=== PATIENT | male | born 1975 | race Caucasian/White ===

== ENCOUNTER 2020-03-20 18:07 | Emergency (ER) | payer SELFPAY ==
[2020-03-20 19:12] VITALS: BP 151/89; PULSE 77; RESP 16; TEMP 37.1; O2SAT 97; BMI 33.0
--- NOTE | 2020-03-20 20:00 | US_ITS ---
EXAMINATION: US VENOUS ULTRASOUND WITH DOPPLER LOWER EXTREMITY, RIGHT CLINICAL INFORMATION: Pain. Injury. COMPARISON: None TECHNIQUE: Ultrasound of the deep veins is performed from the hip to the calf with compression sonography and color and pulse Doppler assessment. Spectral analysis with color-flow imaging is performed. FINDINGS: There is normal venous compression and respiratory variation and augmented flow. The visualized common femoral vein, superficial femoral vein, profunda femoral vein, popliteal vein, and the trifurcation region shows no evidence of deep venous thrombosis. There is no significant popliteal fossa cyst. In the calf there is fluid which is mildly complex in the intermuscular layers of the posterior medial calf. Given history of trauma this could be due to hematoma and possible muscle tear. Fluid collection extends about 10 cm superior inferior and approximately 1 cm transverse. If the patient's symptoms persist, followup ultrasound in 5 days 7 days might be of value to exclude proximal propagation from a non-visualized calf vein. US/US venous duplex LE RT IMPRESSION: 1. No DVT demonstrated in the right lower extremity. 2. Fluid collection in the intermuscular layers of the posterior medial calf.
--- NOTE | 2020-03-20 20:52 | ED.LOWEXIN ---
HPI - Extremity Injury (Lower) General Chief Complaint: Extremity Injury, Lower Stated Complaint: Rule out DVT Time Seen by Provider: 03/20/20 20:00 Source: patient Mode of arrival: ambulatory Limitations: no limitations History of Present Illness HPI Narrative: 44-year-old male who denies significant past medical history who presents ambulatory via triage with complaint of right calf pain. States 3 days ago was helping his friend move some furniture and felt like he pulled his calf he has had some pain in the calf area since. Though he reports that pain is getting better however his work today told him in order to return he needs to get evaluated so he went to urgent care who sent him to emergency room for rule out DVT of the right lower extremity. He denies any personal history of any such history in the past. Not currently taking any medication. No prolonged drives or flights. No lower extremity swelling. No numbness or tingling. No mass sensation. complaint: leg injury Place: home Severity: mild Relieving factors: NSAID and immobilization Exacerbating factors: movement Associated symptoms: ambulatory Other symptoms: none Treatments prior to arrival: cold therapy Related Data Allergies Allergy/AdvReac Type Severity Reaction Status Date / Time No Known Allergies Allergy Verified 03/20/20 19:16 [No Known Allergies*] Review of Systems Review of Systems: Constitutional: No Weight loss, No Fever, No Chills, No Night Sweats, No Fatigue, No Malaise ENT/Mouth: No Hearing loss, No Ear Pain, No Nasal Congestion, No Sinus Pain, No Hoarseness, No sore throat, No Rhinorrhea Eyes: No Eye Pain, No Swelling, No Redness, No Foreign Body, No Discharge, No Vision Changes Cardiovascular: No Chest Pain, No SOB, No Dyspnea on Exertion, No Orthopnea, No Edema, No Palpitations Respiratory: No Cough, No Sputum, No Wheezing, No Smoke Exposure, No Dyspnea Musculoskeletal: No joint pain, No Myalgias, No Joint Swelling Skin: No Skin Lesions, No rash Neuro: No Weakness, No Numbness, No Paresthesias, No Loss of Consciousness, No Dizziness, No Headache Psych: No Social Issues Heme/Lymph: No Bruising, No Bleeding,No Lymphadenopathy Endocrine: No Polyuria, No Polydipsia, No Temperature Intolerance Yes all other systems are reviewed and are negative [facility] Social History Social History Advance Directives: No Advance Directives Information Provided: Yes Physical Exam Vital Signs: Vital Signs: Last Vital Signs Temp 98.8 F 03/20/20 19:12 Pulse 77 03/20/20 19:12 Resp 16 03/20/20 19:12 BP 151/89 H 03/20/20 19:12 Pulse Ox 97 03/20/20 19:12 Body Mass Index 33.0 Reviewed Const: General: cooperative and healthy appearing; No acute distress or intoxicated appearing Nutritional Appearance: average body habitus Orientation/consciousness: patient oriented x3 Chest: Chest palpation & inspection: normal inspection of the chest Resp: Effort & Inspection: normal respiratory effort Cardio: Jugular venous distension: no JVD : General: Yes no CVA tenderness Back/Spine/Pelvis: Back: no CVA tenderness Skin: General skin exam: no rashes or lesions noted Neuro: General: patient oriented x3 Extrem: General: Yes normal to inspection Left lower extremity: normal to inspection and full ROM Upper/lower leg/hip images: 1. The area of the pain that slightly there with palpation. no erythema, swelling. Negative Homans. Squeeze test within normal limits. Course Course Course Narrative: AP consistent with strain type injury to the calf muscle no overt evidence of rupture or infectious pathology. Patient seen at urgent care and sent over for rule out DVT though mild suspicions are low and his risk factors are relatively low will go ahead and do this lower extremity ultrasound rule out DVT. Reevaluation(s) Reevaluation #1: 2100 Sign-out to [facility] night team pending ultrasound of the right lower extremity. Anticipated disposition is to be discharged home with some NSAIDs. MDM - Extremity Injury (Lower) Medical Records Attestation: I reviewed the patient's medical records. Lab Data Attestation: I reviewed the patient's lab results.
[2020-03-20 21:46] VITALS: BP 147/89; PULSE 76; RESP 16; TEMP 36.5; O2SAT 95
== END 2020-03-20 22:00 | disposition home or self-care (01) ==
PROVIDERS: Emergency Provider Internal Medicine
DX: S86.911A Strain of unspecified muscle(s) and tendon(s) at lower leg level, right leg, initial encounter (principal); X50.0XXA Overexertion from strenuous movement or load, initial encounter; M79.661 Pain in right lower leg; Y93.E6 Activity, residential relocation; Y92.019 Unspecified place in single-family (private) house as the place of occurrence of the external cause; Y99.9 Unspecified external cause status
CPT/HCPCS: 93971; 99284

== ENCOUNTER 2020-08-15 07:23 | Emergency (ER) | payer OTHER, SELFPAY ==
--- NOTE | ~2020-08-15 | XR_ITS ---
EXAMINATION: XR CHEST CLINICAL INFORMATION: Chest pain. COMPARISON: None TECHNIQUE: Frontal view of the chest was obtained. FINDINGS: The cardiomediastinal silhouette is within normal limits for AP technique. The lungs are mildly hypoexpanded. No pulmonary edema. Small area of focal retrocardiac consolidation. No effusion or pneumothorax. XR/XR chest 1V IMPRESSION: Small focal area of consolidation in the left lower lobe, question pneumonia. Recommend a follow-up two-view chest x-ray in 4-6 weeks to ensure resolution.
--- NOTE | 2020-08-15 07:30 | ECG_ITS ---
Test Reason : CHEST PAIN Blood Pressure : / mmHG Vent. Rate : 060 BPM Atrial Rate : 060 BPM P-R Int : 150 ms QRS Dur : 118 ms QT Int : 464 ms P-R-T Axes : -26 -39 092 degrees QTc Int : 464 ms Normal sinus rhythm Left axis deviation Left ventricular hypertrophy with QRS widening T wave abnormality, consider lateral ischemia Prolonged QT Abnormal ECG No previous ECGs available Referred By: Zarina Lagos Electronically Signed By:KAREEM BAILON MD
[2020-08-15 07:31] VITALS: BP 173/99; PULSE 59; RESP 20; TEMP 36.6; O2SAT 99; BMI 35.6
--- NOTE | 2020-08-15 07:37 | ED.CHESTPAIN ---
HPI - Chest Pain General Chief Complaint: Chest Pain Stated Complaint: CHEST PAIN Time Seen by Provider: 08/15/20 07:30 Source: patient Mode of arrival: ambulatory Limitations: no limitations History of Present Illness HPI narrative: chest pain no associated symptoms MD complaint: chest pain Onset (ago): day(s) (yesterday while doing no activity at work) Timing of current episode: constant Prior episodes: No Onset: during rest and during exertion Pain location: substernal Pain radiation: none Severity: mild Quality: tightness Relieving factors: nothing Exacerbating factors: other (leaning forward) Treatment prior to arrival: none Related Data Previous Rx's Medication Instructions Recorded naproxen [EC-Naproxen] 500 mg PO Q12H PRN #10 tab 03/20/20 doxycycline hyclate 100 mg PO BID 7 Days #14 cap 08/15/20 hydrochlorothiazide 25 mg PO DAILY #30 tab 08/15/20 Allergies Allergy/AdvReac Type Severity Reaction Status Date / Time No Known Allergies Allergy Verified 03/20/20 19:16 [No Known Allergies*] Review of Systems Review of Systems: Constitutional : No Weight loss, No Fever, No Chills ENT/Mouth : No sore throat, No Rhinorrhea Eyes: No Eye Pain, No Swelling Cardiovascular : pos Chest Pain, no SOB, no Dyspnea on Exertion, No Orthopnea, No Edema, No Palpitations Respiratory : No Cough, No Sputum Gastrointestinal : no Nausea, No Vomiting, No Diarrhea, No abdominal Pain, No Hematochezia, No Melena Genitourinary : No Dysuria, No Urinary Frequency Musculoskeletal : No joint pain, No Myalgias, No Joint Swelling Skin : No Skin Lesions, No rash Neuro : No Weakness, No Numbness, No Dizziness, No Headache Psych : No Anxiety/Panic, No Depression Heme/Lymph: No Bruising, No Lymphadenopathy Endocrine : No Polyuria, No Polydipsia All other systems reviewed and are negative COUNTS INCLUDE 234 BEDS AT THE [facility] Past Medical History Attestation statement: The following information was validated with the patient. Medical History No active medical problems Surgical History Hx of hernia repair Social History Social History (Updated 08/15/20 @ 07:39 by Zarina Yolis, DO) Alcohol intake: never Smoking Status: Current some day smoker Use of substances other than those prescribed or required for medical reasons: Yes Substance Use Type: Marijuana Substance Use Frequency: Daily Advance Directives: No Advance Directives Information Provided: No Physical Exam Vital Signs: Vital Signs: Last Vital Signs Temp 97.9 F 08/15/20 07:31 Pulse 55 08/15/20 08:50 Resp 20 08/15/20 08:50 BP 167/98 H 08/15/20 08:50 Pulse Ox 95 08/15/20 08:50 Body Mass Index 35.6 Appearance: Alert. Oriented X3. No acute distress. Eyes: Pupils equal, round and reactive to light. ENT: Pharynx normal. Neck: Normal inspection. Neck supple. CVS: Normal heart rate and rhythm. Pulses normal. Chest: mild sternal ttp Respiratory: No respiratory distress. Breath sounds normal. Abdomen: Soft and nontender. Skin: Skin warm and dry. Normal skin color. Normal skin turgor. Extremities: No lower extremity edema. No calf ttp Neuro: Oriented X 3. No motor deficit. No sensory deficit. Course Course Course Narrative: flat troponin, atypical in nature, EKG shows LVH with strain will start on HCTZ and refer to PCP MDM - Chest Pain MDM Narrative Medical decision making narrative: 44 yo male here with chest pain that is atypical central in nature and tight no associated symptoms seems unusual for ACS, PERC negative, not toxic, symmetric distal pulses doubt dissection, will need labs, troponin x 1 as pain constant > 6 hours, CXR, likely chronic HTN does not go to the doctors, dispo per results and findings. Lab Data Result diagrams: 08/15/20 07:42 08/15/20 07:42 Labs: Lab Results 08/15/20 08/15/20 08/15/20 Range/Units 07:42 07:42 07:42 WBC 10.2 (4.8-10.8) X10*3/uL RBC 4.66 (4.60-5.80) X10*6/uL Hgb 13.8 L (14.0-18.0) g/dl Hct 41.9 L (42-52) % MCV 89.9 (80-98) fL MCH 29.6 (27.0-33.0) pg MCHC 32.9 (31.0-36.0) g/dl RDW 14.8 (11.0-16.0) % Plt Count 259 (160-400) X10*3/uL MPV 11.0 (9.4-12.4) fL Immature Gran % (Auto) 0.3 (0.0-0.4) % Neut % (Auto) 60.1 (45-73) % Lymph % (Auto) 27.9 (20-40) % Braxton % (Auto) 10.0 (2-11) % Eos % (Auto) 1.1 (0-4) % Baso % (Auto) 0.6 (0-2) % Lymph # (Auto) 2.8 (1.2-4.9) X10*3/uL Braxton # (Auto) 1.0 (0.1-1.2) X10*3/uL Eos # (Auto) 0.1 (0.0-0.4) X10*3/uL Baso # (Auto) 0.1 (0.0-0.2) X10*3/uL Abs Immat Gran (auto) 0.03 (0.00-0.03) X10*3/uL Absolute Neuts (auto) 6.1 (2.0-8.3) X10*3/uL Absolute Nucleated RBC 0.000 (0.0-0.012) X10*3/uL Nucleated RBC % (auto) 0.0 (0.0-0.2) /100WBC Hold Blue Top SEE NOTE Sodium 138 (135-145) mmol/L Potassium 4.1 (3.3-5.1) mmol/L Chloride 105 (96-108) mmol/L Carbon Dioxide 24 (22-29) mmol/L Anion Gap 13 (12-20) BUN 9 (9-16) mg/dL Creatinine 0.85 (0.5-1.4) mg/dL Estim Creat Clear Calc 153.6 Estimated GFR > 60 Random Glucose 99 (60-115) mg/dL Calcium 9.0 (8.4-10.2) mg/dL Total Bilirubin 1.1 H (0.0-1.0) mg/dL Direct Bilirubin 0.3 (0.0-0.5) mg/dL AST 17 (5-37) U/L ALT 17 (0-40) U/L Alkaline Phosphatase 92 (39-117) U/L Troponin I High Sens (<3.5-35.0) ng/L Total Protein 6.9 (6.5-8.0) g/dL Albumin 4.2 (3.5-5.0) g/dL COVID-19 (VICKEY) (Negative) COVID-19 Clin Com 08/15/20 08/15/20 08/15/20 Range/Units 07:42 08:07 11:04 WBC (4.8-10.8) X10*3/uL RBC (4.60-5.80) X10*6/uL Hgb (14.0-18.0) g/dl Hct (42-52) % MCV (80-98) fL MCH (27.0-33.0) pg MCHC (31.0-36.0) g/dl RDW (11.0-16.0) % Plt Count (160-400) X10*3/uL MPV (9.4-12.4) fL Immature Gran % (Auto) (0.0-0.4) % Neut % (Auto) (45-73) % Lymph % (Auto) (20-40) % Braxton % (Auto) (2-11) % Eos % (Auto) (0-4) % Baso % (Auto) (0-2) % Lymph # (Auto) (1.2-4.9) X10*3/uL Braxton # (Auto) (0.1-1.2) X10*3/uL Eos # (Auto) (0.0-0.4) X10*3/uL Baso # (Auto) (0.0-0.2) X10*3/uL Abs Immat Gran (auto) (0.00-0.03) X10*3/uL Absolute Neuts (auto) (2.0-8.3) X10*3/uL Absolute Nucleated RBC (0.0-0.012) X10*3/uL Nucleated RBC % (auto) (0.0-0.2) /100WBC Hold Blue Top Sodium (135-145) mmol/L Potassium (3.3-5.1) mmol/L Chloride (96-108) mmol/L Carbon Dioxide (22-29) mmol/L Anion Gap (12-20) BUN (9-16) mg/dL Creatinine (0.5-1.4) mg/dL Estim Creat Clear Calc Estimated GFR Random Glucose (60-115) mg/dL Calcium (8.4-10.2) mg/dL Total Bilirubin (0.0-1.0) mg/dL Direct Bilirubin (0.0-0.5) mg/dL AST (5-37) U/L ALT (0-40) U/L Alkaline Phosphatase (39-117) U/L Troponin I High Sens 8.1 6.1 (<3.5-35.0) ng/L Total Protein (6.5-8.0) g/dL Albumin (3.5-5.0) g/dL COVID-19 (VICKEY) Negative (Negative) COVID-19 Clin Com See Note ECG Data ECG #1: Attestation: I personally reviewed and interpreted this ECG as follows: ECG interpretation date: 08/15/20 ECG interpretation time: 07:41 Interpretation: Rate: 60 Rhythm: NSR with LVH [place]: left, LVH Normal P waves. Normal LILLY. Normal QRS complex. ST T wave : LVH with strain pattern inverted I and aVL, V6, no MIQUEL qTC: normal prior studies: no acute ischemia The study has been interpreted contemporaneously by me. . Discharge Plan Discharge Clinical Impression: Atypical chest pain HTN (hypertension) Qualifiers: Hypertension type: unspecified Qualified Code(s): I10 - Essential (primary) hypertension Pneumonia Qualifiers: Pneumonia type: due to unspecified organism Laterality: left Lung location: lower lobe of lung Qualified Code(s): J18.9 - Pneumonia, unspecified organism Patient Disposition: Home, Self-Care Instructions: Chest Pain (ED), Chronic Hypertension (ED), Pneumonia (ED) Additional Instructions: return to ED for any worsening symptoms or concerns COVID TEST WAS NEGATIVE Prescriptions: New doxycycline hyclate 100 mg capsule 100 mg PO BID 7 Days Qty: 14 RF: 0 hydrochlorothiazide 25 mg tablet 25 mg PO DAILY Qty: 30 RF: 2 No Action naproxen [EC-Naproxen] 500 mg tablet,delayed release (DR/EC) 500 mg PO Q12H PRN (Reason: pain) Qty: 10 RF: 0 Referrals: Physician,None [Primary Care Provider] - 2 days (PCP as soon as possible) Stand Alone Forms: Work/School Release
[2020-08-15 07:48] LABS: MANUAL DIFF FLAG NO
[2020-08-15 07:53] LABS: Basophils Absolute Auto 0.1 X10*3/uL (0.0-0.2); Basophils Percent Auto 0.6 % (0-2); Eosinophils Absolute Auto 0.1 X10*3/uL (0.0-0.4); Eosinophils Percent Auto 1.1 % (0-4); Hematocrit 41.9 % (42-52); Hemoglobin 13.8 g/dl (14.0-18.0); Imm Gran Abs Auto 0.03 X10*3/uL (0.00-0.03); Imm Gran Pct Auto 0.3 % (0.0-0.4); Lymphocytes Absolute Auto 2.8 X10*3/uL (1.2-4.9); Lymphocytes Percent Auto 27.9 % (20-40); Mean Corpuscular HGB Conc 32.9 g/dl (31.0-36.0); Mean Corpuscular Hemoglobin 29.6 pg (27.0-33.0); Mean Corpuscular Volume 89.9 fL (80-98); Neutrophils Absolute Auto 6.1 X10*3/uL (2.0-8.3); Neutrophils Percent Auto 60.1 % (45-73); Platelet Count 259 X10*3/uL (160-400); Red Blood Count 4.66 X10*6/uL (4.60-5.80); Red Cell Distribution Width 14.8 % (11.0-16.0); White Blood Count 10.2 X10*3/uL (4.8-10.8)
[2020-08-15 08:08] VITALS: BP 173/99; PULSE 68; RESP 15; O2SAT 99
[2020-08-15 08:19] LABS: Alanine Aminotransferase 17 U/L (0-40); Albumin Level 4.2 g/dL (3.5-5.0); Alkaline Phosphatase 92 U/L (39-117); Anion Gap 13 (12-20); Aspartate Amino Transferase 17 U/L (5-37); Bilirubin Direct 0.3 mg/dL (0.0-0.5); Bilirubin Total 1.1 mg/dL (0.0-1.0); Blood Urea Nitrogen 9 mg/dL (9-16); Carbon Dioxide 24 mmol/L (22-29); Chloride 105 mmol/L (96-108); Creatinine Clr Calc Pharmacy 153.6; Estimated Glomerular Filt Rate > 60; Glucose Random 99 mg/dL (60-115); Potassium 4.1 mmol/L (3.3-5.1); Sodium 138 mmol/L (135-145); Total Protein 6.9 g/dL (6.5-8.0)
[2020-08-15 08:27] LABS: Troponin-I High Sensitivity 8.1 ng/L (<3.5-35.0)
[2020-08-15 08:34] LABS: COVID-19 Test Negative (Negative)
[2020-08-15 08:50] VITALS: BP 167/98; PULSE 55; RESP 20; O2SAT 95
--- NOTE | 2020-08-15 08:51 | PC.NURSE ---
ot resting comfortably in the stretcher, denies chest pain at this time, sinus ary at this time 55-60, vs stable. pt aware of plan to redraw trop at 1030
[2020-08-15 11:59] LABS: Troponin-I High Sensitivity 6.1 ng/L (<3.5-35.0)
[2020-08-15 12:29] VITALS: BP 160/100; PULSE 54; RESP 16; O2SAT 95
== END 2020-08-15 12:30 | disposition home or self-care (01) ==
PROVIDERS: Emergency Provider Emergency Medicine
DX: R07.89 Other chest pain (principal); I10 Essential (primary) hypertension; J18.9 Pneumonia, unspecified organism; Z20.822 Contact with and (suspected) exposure to COVID-19; F17.200 Nicotine dependence, unspecified, uncomplicated; F12.90 Cannabis use, unspecified, uncomplicated
CPT/HCPCS: 36415; 71045; 80048; 80076; 84484; 85025; 87635; 93005; 99283; 99285

== ENCOUNTER → 2021-02-03 13:45 | Outpatient (REF) | payer OTHER, SELFPAY ==
--- NOTE | 2021-02-03 13:48 | CA_ITS ---
Transthoracic Echocardiogram Patient (Last, First, Middle): Varinder Samuel, Gender: Male Date of : 1975 Age: 45 Procedure Date: 02/03/2021 Procedure Type: Transthoracic Echocardiogram Location: OP Height: 182.88 cm Weight: 123.83 kg BSA: 2.43 m2 Heart Rate: bpm BP: 140 / 80 mmHg Cover Operator: BHARGAV/CP Referring MD: Susy Cleary Symptoms: I10 HTN Study Quality: Fair ECG Rhythm: Sinus Conclusions: - The left ventricular systolic function is normal. The calculated ejection fraction is 58% by biplane method. - There is moderately increased left ventricular wall thickness. - The basal inferior segment is hypokinetic. - There is moderate dilatation of the ascending aorta measuring 4.40 cm. Findings Left Ventricle Normal left ventricular cavity size. There is moderately increased left ventricular wall thickness. The left ventricular systolic function is normal. The calculated ejection fraction is 58% by biplane method. E/E prime ratio is between 8 and 15 consistent with indeterminate filling pressures. Evidence suggests grade I (mild) diastolic dysfunction. Wall Motion Rest Echo Findings The basal inferior segment is hypokinetic. Right Ventricle Mildly increased right ventricular cavity size. There is normal right ventricular systolic function. Aortic Valve There is a normal trileaflet aortic valve. There is no aortic valve stenosis. There is trace (trivial) aortic valve regurgitation. Mitral Valve The mitral valve appears normal. There is no mitral valve regurgitation. There is no mitral valve stenosis. Pulmonic Valve The pulmonic valve was not well visualized. There is trace pulmonic valve regurgitation. Tricuspid Valve Normal tricuspid valve structure. There is trace tricuspid valve regurgitation. The pulmonary artery systolic pressure is normal. Great Vessels There is moderate dilatation of the ascending aorta measuring 4.40 cm. Venous The inferior vena cava is normal in size and collapses greater than 50% with inspiration. Pericardium/Pleural There is no evidence of pericardial effusion. Prior Study Comparison No prior study available for comparison. Measurements 2D Linear Measurements IVSd: 1.35 0.6-0.9/0.6-1.0 cm LVIDd: 5.08 3.9-5.3/4.2-5.9 cm LVIDd Index: 2.09 2.4-3.2/2.2-3.1 cm/m2 LVIDs: 3.07 2.0-3.6 cm LVPWd: 1.26 0.7-1.1 cm Ao Root: 4.10 2.1-3.5 cm LA Diam: 4.00 2.7-3.8/3.0-4.0 cm LAIDs Index: 1.65 1.5-2.3 cm/m2 LV Mass: 336.61 67-162/88-224 g LV Mass Index: 138.52 43-95/49-115 g/m2 LVOT Diam: 2.20 3.0+(-)1.3 cm 2D Systolic Function EF 4C: 57.00 >55% EF 2C: 59.50 >55% EF BiP: 58.30 >55% Mitral Valve MV Pk E: 0.63 MV PK A: 0.62 MV Decel Time: 282.00 E/A: 1.00 E'Lateral: 8.38 E'Medial: 5.11 E/E' Med: 12.30 E/E' Lat: 7.50 PHT: 83.00 MVA PHT: 2.65 Decel Harlan: 2.22 Aortic Valve AoV Pk Scott: 1.41 AoV Mn Scott: 0.92 AoV VTI: 0.24 AoV Pk Grad: 8.00 Aov Mn Grad: 4.00 JANICE Cont.VTI: 3.39 LVOT LVOT Pk Scott: 1.07 LVOT Mn Scott: 0.74 LVOT VTI: 0.22 LVOT Pk Grad: 5.00 LVOT Mn Grad: 3.00 LVOT Diam: 2.20 LVOT Area: 3.80 Diastolic Function MV Pk E: 0.63 MV Pk A: 0.62 E/A: 1.00 E'Medial: 5.11 E/E' Med: 12.30 E' Laterial: 8.38 E/E' Lat: 7.50 Right Ventricle TAPSE (mm): 24.80 TVS' Scott: 14.90 Tricuspid Valve TR Pk Scott: 1.18 TR Pk Grad: 6.00 RA Press: 3.00 RVSP: 9.00 Great Vessels Aorta Ao Root-2D: 4.10 2.0-3.7 cm Ao Asc: 4.40 2.1-3.4 cm Ao Arch: 3.60 Updated in Other Vendor System with Status of Final Jon Nichole MD electronically signed on 02/04/2021 11:53:17 AM with status of Final
== END ==
LOC: HO.CARD 13:45
PROVIDERS: Visit Provider Nurse Practitioner Family
DX: I10 Essential (primary) hypertension (principal); R06.02 Shortness of breath
CPT/HCPCS: 93306

== ENCOUNTER → 2021-02-16 15:12 | Outpatient (BNVA) | payer OTHER, SELFPAY | PROVIDERS: PCP Nurse Practitioner Family; Referring Provider Nurse Practitioner Family; Visit Provider Internal Medicine Cardiovascular Disease | DX: R07.9 Chest pain, unspecified (principal); R06.02 Shortness of breath; I10 Essential (primary) hypertension | CPT/HCPCS: 93005 ==

== ENCOUNTER → 2021-04-08 10:55 | Outpatient (REF) | payer OTHER, SELFPAY ==
--- NOTE | 2021-04-08 11:01 | CA_ITS ---
Acquisition Time: 2021-04-08 11:24:08 Total Exercise Time: 00:05:30 Test Indications: CP, SOB Medications: SEE CHART Protocol: LES Max HR: 153 BPM 86% of Pred: 176 BPM Max BP: 158/088 mmHG Max Work Load: 7.0 METS Exercise stress test with exercise 5 min 30 sec of Les protocol, with moderate shortness of breath, no chest discomfort, with isolated PVC, with normotensive response to exercise, without EKG changes meeting criteira for ischemia, during exercsie and in recvovery there is T wave inversion aVL which resolved by 5 min recovery. Echo images obtained by tech at rest and immediately post peak exercise. Definity contrast used. Test reviewed with Dr Nichole Referred By: Gregg Arriola Overread By: VÍCTOR JAY
== END ==
LOC: HO.CARD 10:55
PROVIDERS: PCP Nurse Practitioner Family; Visit Provider Internal Medicine Cardiovascular Disease
DX: R07.9 Chest pain, unspecified (principal); R06.02 Shortness of breath
CPT/HCPCS: 93350; Q9957

== ENCOUNTER → 2021-04-28 14:46 | Outpatient (BNVA) | payer SELFPAY | PROVIDERS: PCP Nurse Practitioner Family; Visit Provider Internal Medicine | DX: Z02.1 Encounter for pre-employment examination (principal) | CPT/HCPCS: 36415; 86706 ==

== ENCOUNTER 2021-11-24 14:39 | Emergency (ER) | payer OTHER, SELFPAY ==
--- NOTE | ~2021-11-24 | CT_ITS ---
EXAMINATION: CT HEAD WITHOUT CONTRAST CLINICAL INFORMATION: Hypertension and dizziness. COMPARISON: None TECHNIQUE: Contiguous axial imaging was performed from the skull base to vertex without intravenous administration of contrast. This CT examination was performed using dose optimization techniques as appropriate, variously including the following: *Automated exposure control *Adjustment of mA and/or kV according to patient size (this includes techniques or standardized protocols for targeted exams where dose is matched to indication/reason for exam; i.e. extremities or head) *Use of iterative reconstruction technique DLP: 780 mGy-cm FINDINGS: There is no evidence of acute intracranial hemorrhage or territorial infarction. No abnormal mass effect or midline shift is seen. Flores to white matter differentiation is well preserved. No extra-axial fluid collections are identified. The ventricles are normal in size. There is no abnormal attenuation within the brain parenchyma. The osseous structures and soft tissues are normal. Mild polypoid mucosal disease of the right maxillary sinus with minimal mucosal disease of the left maxillary sinus. Other visualized paranasal sinuses and mastoid air cells are well aerated. CT/CT head/brain wo con IMPRESSION: -No acute intracranial pathology. -Mild sinus disease.
[2021-11-24 16:05] VITALS: BP 168/96; PULSE 63; RESP 18; TEMP 36.9; O2SAT 97; BMI 37.0
[2021-11-24 16:25] LABS: MANUAL DIFF FLAG NO
[2021-11-24 16:27] LABS: Basophils Absolute Auto 0.1 X10*3/uL (0.0-0.2); Basophils Percent Auto 0.5 % (0-2); Eosinophils Absolute Auto 0.3 X10*3/uL (0.0-0.4); Eosinophils Percent Auto 2.3 % (0-4); Hemoglobin 13.4 g/dl (14.0-18.0); Imm Gran Abs Auto 0.04 X10*3/uL (0.00-0.03); Imm Gran Pct Auto 0.4 % (0.0-0.4); Lymphocytes Absolute Auto 3.3 X10*3/uL (1.2-4.9); Lymphocytes Percent Auto 29.7 % (20-40); Mean Corpuscular HGB Conc 32.7 g/dl (31.0-36.0); Mean Corpuscular Volume 88.7 fL (80.0-98.0); Mean Platelet Volume 10.9 fL (9.4-12.4); Monocytes Absolute Auto 1.3 X10*3/uL (0.1-1.2); Monocytes Percent Auto 11.3 % (2-11); Neutrophils Absolute Auto 6.2 x10*3/uL (2.0-8.3); Neutrophils Percent Auto 55.8 % (45-73); Platelet Count 298 X10*3/uL (160-400); Red Blood Count 4.62 X10*6/uL (4.60-5.80); Red Cell Distribution Width 14.6 % (11.0-16.0); White Blood Count 11.1 X10*3/uL (4.8-10.8)
[2021-11-24 16:42] LABS: Anion Gap 12 (12-20); Blood Urea Nitrogen 12 mg/dL (9-16); Carbon Dioxide 25 mmol/L (22-29); Chloride 105 mmol/L (96-108); Creatinine Clr Calc Pharmacy 146.6; Estimated Glomerular Filt Rate > 60; Glucose Random 95 mg/dL (60-115); Potassium 4.4 mmol/L (3.3-5.1); Sodium 138 mmol/L (135-145)
[2021-11-24 17:25] VITALS: BP 159/103; PULSE 56; RESP 16; TEMP 36.8; O2SAT 99
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
--- NOTE | 2021-11-24 17:31 | PC.NURSE ---
pt a&oxx3, vss - hypertensive, has been off HTN medication for a while, pt reports feeling dizzy today at work and had nurse check BP. pt denies any pain at this time. pending ED provider.
[2021-11-24] MEDS: 0.9 % Sodium Chloride 1,000 ML 999 ML IV (17:40)
[2021-11-24] MEDS: amLODIPine Besylate 5 MG TABLET PO (17:45)
--- NOTE | 2021-11-24 17:46 | PC.NURSE ---
20GIV placed right hand, NaCl running, medicated per provider order, pt to CT.
[2021-11-24 18:52] VITALS: BP 162/105; PULSE 60; RESP 22; O2SAT 99
--- NOTE | 2021-11-24 19:05 | ECG_ITS ---
Test Reason : cp Blood Pressure : / mmHG Vent. Rate : 055 BPM Atrial Rate : 055 BPM P-R Int : 186 ms QRS Dur : 110 ms QT Int : 462 ms P-R-T Axes : -02 -16 003 degrees QTc Int : 441 ms Sinus bradycardia Moderate voltage criteria for LVH, may be normal variant ( R in aVL , Tenino product ) Nonspecific T wave abnormality Abnormal ECG When compared with ECG of 15-AUG-2020 07:38, No significant changes seen Referred By: Sudha Stiles Electronically Signed By:KIRTI CASTILLO
[2021-11-24 20:01] LABS: Troponin-I High Sensitivity 8.7 ng/L (<3.5-35.0)
== END 2021-11-24 20:55 | disposition home or self-care (01) ==
PROVIDERS: Emergency Provider Emergency Medicine; PCP Nurse Practitioner Family
DX: I10 Essential (primary) hypertension (principal); T67.5XXA Heat exhaustion, unspecified, initial encounter; X58.XXXA Exposure to other specified factors, initial encounter; R42 Dizziness and giddiness; Y93.9 Activity, unspecified; Y92.89 Other specified places as the place of occurrence of the external cause; Y99.8 Other external cause status; Z91.14 Patient's other noncompliance with medication regimen
CPT/HCPCS: 36415; 70450; 80048; 84484; 85025; 93005; 96360; 96361; 99284

== ENCOUNTER 2023-11-30 07:20 | Emergency (ER) | payer BC, SELFPAY ==
--- NOTE | ~2023-11-30 | XR_ITS ---
EXAMINATION: XR CHEST CLINICAL INFORMATION: Productive cough. Chest pain. COMPARISON: 08/15/2020 TECHNIQUE: 2 views of the chest were obtained. FINDINGS: The lungs are well expanded. No focal consolidation. No pleural effusion. Cardiac silhouette is unchanged. XR/XR chest 2V IMPRESSION: No acute abnormality.
[2023-11-30 07:32] VITALS: BP 183/101; PULSE 64; RESP 17; TEMP 36.9; O2SAT 95; BMI 38.8
--- NOTE | 2023-11-30 07:37 | ECG_ITS ---
Test Reason : CHEST TIGHTNESS Blood Pressure : / mmHG Vent. Rate : 059 BPM Atrial Rate : 059 BPM P-R Int : 170 ms QRS Dur : 108 ms QT Int : 448 ms P-R-T Axes : 007 -37 121 degrees QTc Int : 443 ms Sinus bradycardia with sinus arrhythmia Left axis deviation Left ventricular hypertrophy with repolarization abnormality ( R in aVL , Rene product , Romhilt-Wilkerson ) Abnormal ECG When compared with ECG of 24-NOV-2021 19:14, T wave inversion less evident in Lateral leads Referred By: Generic ED Physician Electronically Signed By:KIRTI CASTILLO
[2023-11-30 07:52] LABS: MANUAL DIFF FLAG NO
[2023-11-30 07:54] LABS: Basophils Absolute Auto 0.1 X10*3/uL (0.0-0.2); Basophils Percent Auto 0.5 % (0-2); Eosinophils Absolute Auto 0.3 X10*3/uL (0.0-0.4); Eosinophils Percent Auto 2.6 % (0-4); Hematocrit 40.9 % (42.0-52.0); Hemoglobin 13.9 g/dl (14.0-18.0); Imm Gran Abs Auto 0.03 X10*3/uL (0.00-0.03); Imm Gran Pct Auto 0.3 % (0.0-0.4); Lymphocytes Absolute Auto 1.8 X10*3/uL (1.2-4.9); Lymphocytes Percent Auto 17.5 % (20-40); Mean Corpuscular Hemoglobin 29.4 pg (27.0-33.0); Mean Corpuscular Volume 86.7 fL (80.0-98.0); Mean Platelet Volume 10.4 fL (9.4-12.4); Monocytes Absolute Auto 1.2 X10*3/uL (0.1-1.2); Monocytes Percent Auto 11.6 % (2-11); Neutrophils Absolute Auto 6.9 x10*3/uL (2.0-8.3); Neutrophils Percent Auto 67.5 % (45-73); Platelet Count 265 X10*3/uL (160-400); Red Blood Count 4.72 X10*6/uL (4.60-5.80); Red Cell Distribution Width 14.6 % (11.0-16.0); White Blood Count 10.2 X10*3/uL (4.8-10.8)
[2023-11-30 08:07] LABS: Anion Gap 13 (12-20); Blood Urea Nitrogen 8 mg/dL (9-16); Calcium 9.1 mg/dL (8.4-10.2); Carbon Dioxide 26 mmol/L (22-29); Chloride 104 mmol/L (96-108); Creatinine Clr Calc Pharmacy 140.7; Estimated Glomerular Filt Rate > 60; Glucose Random 107 mg/dL (60-115); Potassium 3.6 mmol/L (3.3-5.1); Sodium 139 mmol/L (135-145)
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
[2023-11-30 08:29] VITALS: BP 163/101; PULSE 64; RESP 18; TEMP 36.9; O2SAT 97
[2023-11-30 08:31] LABS: Influenza A PCR NEGATIVE (Negative); Influenza B PCR NEGATIVE (Negative); Resp Syncy Virus RNA Qual PCR NEGATIVE (Negative); SARS COV2 PCR INHOUSE NEGATIVE (Negative)
[2023-11-30 08:34] LABS: Troponin-I High Sensitivity 11.5 ng/L (<3.5-35.0)
[2023-11-30] MEDS: Albuterol Sulfate 90 MCG 8 GM INHALER 2 PUFF INHALE (08:35)
[2023-11-30 08:36] VITALS: PULSE 64; RESP 15; O2SAT 97
[2023-11-30 08:39] VITALS: BP 163/101
[2023-11-30] MEDS: amLODIPine Besylate 5 MG TABLET PO (08:39)
[2023-11-30] MEDS: hydroCHLOROthiazide 25 MG TABLET PO (08:39)
[2023-11-30 09:06] VITALS: BP 168/105; PULSE 66; RESP 16; TEMP 36.4; O2SAT 96
== END 2023-11-30 09:08 | disposition home or self-care (01) ==
PROVIDERS: Emergency Provider Emergency Medicine
DX: J40 Bronchitis, not specified as acute or chronic (principal); I10 Essential (primary) hypertension; R09.89 Other specified symptoms and signs involving the circulatory and respiratory systems; R05.9 Cough, unspecified; Z03.818 Encounter for observation for suspected exposure to other biological agents ruled out; Z79.899 Other long term (current) drug therapy
CPT/HCPCS: 0241U; 71046; 80048; 84484; 85025; 93005; 94640; 94664; 99284; 99285

== ENCOUNTER → 2023-11-30 07:37 | Outpatient (BNV) | payer BC, SELFPAY | PROVIDERS: Emergency Provider Emergency Medicine; Visit Provider Internal Medicine | DX: R07.89 Other chest pain (principal); R00.1 Bradycardia, unspecified; R94.31 Abnormal electrocardiogram [ECG] [EKG] | CPT/HCPCS: 93010 ==

== ENCOUNTER 2024-01-30 14:49 | Inpatient (IN) | payer BC, SELFPAY ==
[2024-01-30] VITALS (7 sets, daily range): BP systolic 159–185; BP diastolic 87–109; PULSE 59–74; RESP 18–22; TEMP 36.6–37; O2SAT 96–98; BMI 39.5
--- NOTE | ~2024-01-30 | MR_ITS ---
EXAMINATION: MR BRAIN WITHOUT CONTRAST CLINICAL INFORMATION: ? CVA, slurred speech COMPARISON: None available. TECHNIQUE: MRI of the brain was obtained using routine sequences without contrast. FINDINGS: Motion artifact is present. Acute infarct involving the left basal ganglia. No hemorrhagic transformation. No midline shift or hydrocephalus. No acute extra-axial fluid collections. The osseous structures are unremarkable. The pituitary gland, pineal gland and remaining midline structures are unremarkable. No orbital pathology. Mild to moderate mucosal thickening of the paranasal sinuses. The mastoid air cells are clear. MR/MR head/brain wo con IMPRESSION: Acute left basal ganglia infarct. No hemorrhagic transformation. Electronically signed by: Shahnaz Ken MD 01/31/2024 05:00 PM EDT
--- NOTE | ~2024-01-30 | CT_ITS ---
EXAMINATION: CT ANGIOGRAM HEAD CT ANGIOGRAM NECK CLINICAL INFORMATION: Slurred speech. COMPARISON: CT head from 12/04/2021. TECHNIQUE: Initial noncontrast raw stock machine loader imaging of the head and neck was performed. Noncontrast head CT was also performed. Test bolus sequences followed by intravenous administration 70 mL of Omnipaque 350. Helical imaging was performed in the axial plane from the aortic arch to the skull vertex. Delayed postcontrast imaging of the head was also performed. The data was processed at the ultrasound technologist sonographer's workstation for generation of MIP sequences. Angled MIPs and volume rendered reformatted images were also generated at an offline 3D workstation. Stenoses are assessed in accordance with NASCET criteria unless otherwise indicated. This CT examination was performed using dose optimization techniques as appropriate, variously including the following: *Automated exposure control. *Adjustment of mA and/or kV according to patient size (this includes techniques or standardized protocols for targeted exams where dose is matched to indication/reason for exam; i.e. extremities or head). *Use of iterative reconstruction technique. DLP: 2421 mGy-cm FINDINGS: CT Head: There is no evidence of acute intracranial hemorrhage or edematous territorial infarction. Flores-white matter differentiation is preserved. There is no abnormal attenuation within the brain parenchyma. The ventricles are normal in morphology and size. No evidence for obstructive hydrocephalus. No abnormal mass effect or midline shift. No extra-axial fluid collections. No pathologic intra-axial enhancement or regional oligemia. No acute soft tissue or osseous abnormalities. Mild mucosal thickening of the paranasal sinuses. The mastoid air cells and middle ear cavities are clear. Multifocal odontogenic enamel erosions and periapical lucencies. CT Neck: The thyroid gland and remaining cervical soft tissues are within normal limits. Straightening of the normal cervical lordosis. Moderate degenerative disc disease from C4-C7. Facet and uncovertebral joint arthropathy leads to osseous encroachment on the neural foramina from C5-C7. CT Upper Chest: The visualized lung apices and upper mediastinum are within normal limits. Neck CTA: Aortic Arch: Normal contour and caliber. Classic 3 vessel branching pattern of the aortic arch. Great Vessel Origins: No significant stenosis of the branch origins. Right Common Carotid Artery: No focal stenosis or occlusion. Cervical Right Internal Carotid Artery: Normal opacification without focal stenosis or occlusion. Left Common Carotid Artery: No focal stenosis or occlusion. Cervical Left Internal Carotid Artery: Normal opacification without focal stenosis or occlusion. Cervical Right Vertebral Artery: Dominant. No focal stenosis or occlusion. Cervical Left Vertebral Artery: No focal stenosis or occlusion. Brain CTA: Intracranial Internal Carotid Arteries: No focal stenosis or occlusion. Right Anterior Cerebral Artery: Normal A1 segment. Normal opacification of the distal [place] segments. Left Anterior Cerebral Artery: Normal A1 segment. Normal opacification of the distal [place] segments. Anterior Communicating Artery: Normal. Right Middle Cerebral Artery: Normal M1 segment of the MCA without focal stenosis or occlusion. Normal arborization of the distal segments. Left Middle Cerebral Artery: Normal M1 segment of the MCA without focal stenosis or occlusion. Normal arborization of the distal segments. Right Vertebral Artery: Normal V4 segment. Normal opacification of the proximal segments of the posterior inferior cerebellar artery. Left Vertebral Artery: Normal V4 segment. The posterior inferior cerebellar artery is not well opacified; however, there is no CT evidence of acute occlusion. Basilar Artery: Normal without focal stenosis or occlusion. Normal appearance of the proximal superior cerebellar arteries. Right Posterior Cerebral Artery: Normal P1 segment. Normal opacification of the distal WATCH CRYSTAL MOLDER segments. Left Posterior Cerebral Artery: Normal P1 segment. Normal opacification of the distal WATCH CRYSTAL MOLDER segments. Normal opacification of the superior sagittal, straight, transverse, and sigmoid sinuses. CT/CT angio head neck IMPRESSION: 1. No evidence of acute intracranial hemorrhage or edematous territorial infarction. 2. CTA of the head and neck without proximal occlusion or flow-limiting stenosis. Electronically signed by: Negro Emanuel DO 01/30/2024 06:17 PM EDT
--- NOTE | 2024-01-30 14:58 | ECG_ITS ---
Test Reason : HEART SCREENING Blood Pressure : / mmHG Vent. Rate : 058 BPM Atrial Rate : 058 BPM P-R Int : 154 ms QRS Dur : 104 ms QT Int : 460 ms P-R-T Axes : 039 -40 122 degrees QTc Int : 451 ms Sinus bradycardia with sinus arrhythmia Left axis deviation Left ventricular hypertrophy with repolarization abnormality ( R in aVL , Rene product , Romhilt-Wilkerson ) Abnormal ECG When compared with ECG of 30-NOV-2023 07:37, No significant change was found Referred By: Fely Fagan Electronically Signed By:KIRTI CASTILLO
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
[2024-01-30] MEDS: iohexoL 350 MG/ML 100 ML INFUS..BTL IV (15:34)
[2024-01-30 15:53] LABS: MANUAL DIFF FLAG NO
[2024-01-30 15:56] LABS: Basophils Absolute Auto 0.1 X10*3/uL (0.0-0.2); Basophils Percent Auto 0.5 % (0-2); Eosinophils Absolute Auto 0.1 X10*3/uL (0.0-0.4); Hematocrit 41.9 % (42.0-52.0); Hemoglobin 13.6 g/dl (14.0-18.0); Imm Gran Abs Auto 0.04 X10*3/uL (0.00-0.03); Imm Gran Pct Auto 0.4 % (0.0-0.4); Lymphocytes Absolute Auto 2.2 X10*3/uL (1.2-4.9); Lymphocytes Percent Auto 19.7 % (20-40); Mean Corpuscular HGB Conc 32.5 g/dl (31.0-36.0); Mean Corpuscular Hemoglobin 28.7 pg (27.0-33.0); Mean Corpuscular Volume 88.4 fL (80.0-98.0); Mean Platelet Volume 10.8 fL (9.4-12.4); Monocytes Absolute Auto 1.1 X10*3/uL (0.1-1.2); Monocytes Percent Auto 10.1 % (2-11); Neutrophils Absolute Auto 7.5 x10*3/uL (2.0-8.3); Neutrophils Percent Auto 68.3 % (45-73); Platelet Count 283 X10*3/uL (160-400); Red Blood Count 4.74 X10*6/uL (4.60-5.80); Red Cell Distribution Width 14.7 % (11.0-16.0)
[2024-01-30 16:04] LABS: Estimated Average Glucose 117 mg/dL; Hemoglobin A1C 128.3122 umol/L; Hemoglobin A1c % 5.7 % (<6.0)
[2024-01-30 16:09] LABS: Alanine Aminotransferase 32 U/L (0-40); Albumin Level 4.1 g/dL (3.5-5.0); Alkaline Phosphatase 84 U/L (39-117); Anion Gap 13 (12-20); Aspartate Amino Transferase 21 U/L (5-37); Bilirubin Direct 0.2 mg/dL (0.0-0.5); Bilirubin Total 0.7 mg/dL (0.0-1.0); Blood Urea Nitrogen 10 mg/dL (9-16); Calcium 9.4 mg/dL (8.4-10.2); Carbon Dioxide 24 mmol/L (22-29); Chloride 103 mmol/L (96-108); Cholesterol 225 mg/dL (<200); Creatinine Clr Calc Pharmacy 145.1; Estimated Glomerular Filt Rate > 60; Ethanol < 10 mg/dL; Glucose Random 97 mg/dL (60-115); HDL Cholesterol 38 mg/dL (>40); LDL Cholesterol Calculated 133 mg/dL (<100); Lipase 14 U/L (8-78); Potassium 3.6 mmol/L (3.3-5.1); Sodium 136 mmol/L (135-145); Total Protein 6.9 g/dL (6.5-8.0); Triglycerides 271 mg/dL (<150)
--- NOTE | 2024-01-30 18:15 | PHA.MEDREC ---
Addendum entered by Estefania De La Cruz 01/31/24 09:20: called pharmacy 01/31/24 stating patient claimed he is taking medications. He states he fills at [facility] pharmacy. Called [facility] pharmacy to confirm medications. Pharmacy states patient only received Losartan pot 25 mg was filled 11/01/2022 no other medications on file. Original Note: Pharmacy Consult ? Medication Reconciliation Pharmacy has completed the medication reconciliation. Patient has not had his blood pressure medications in a very long time due to insurance issues, but was once on amlodipine 5mg daily as well as HCTZ 25mg daily. No other medications
[2024-01-30] MEDS: Aspirin 325 MG TABLET PO (18:44)
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
--- NOTE | 2024-01-30 20:35 | MHC.EDTECH ---
This tech assumed care of patient at 1900, rounded and introduced self to patient,vitals taken,BP is elevated 170/103 on the LT side,163/106 on the RT side,RN made aware,patient urinated 300MLS of clear yellow urine,urine sample obtained and sent to lab. patient requested food,patient was given a sandwich and a can of gingerale,call dawn in reach
[2024-01-30 21:02] LABS: Amphetamine Screen Urine Not Detected (Not Detect); Barbiturates, Urine Not Detected (Not Detect); Benzodiazepines Screen Urine Not Detected (Not Detect); Buprenorphine Scr Not Detected (Not Detect); Cannabinoid Screen Urine POSITIVE (Not Detect); Cocaine Screen Urine Not Detected (Not Detect); Fentanyl, urine Not Detected (Not Detect); Methadone Screen, Urine Not Detected (Not Detect); Opiate Screen Urine Not Detected (Not Detect); Oxycodone Screen Urine Not Detected (Not Detect); Phencyclidine Screen Urine Not Detected (Not Detect)
[2024-01-30] MEDS: Atorvastatin Calcium 40 MG TABLET PO (22:12)
[2024-01-30] MEDS: Enoxaparin Sodium 40 MG/0.4 ML SYRINGE SUBCUT (22:12)
--- NOTE | 2024-01-30 22:43 | MHC.EDTECH ---
Hourly rounding and vitals completed,BP is elevated RN is aware,patient ate all of his sandwich,patient is resting quietly at this time,lights dimmed,call dawn in reach
[2024-01-30] MEDS: Scopolamine 1.5 MG PATCH.TD.3 EAR-BEHIND (23:53)
[2024-01-31] VITALS: BP 162/92; PULSE 62; RESP 20; TEMP 36.6; O2SAT 98
--- NOTE | 2024-01-31 00:45 | MHC.EDTECH ---
Patient ambulated to the bathroom with a steady gait,pt stated he urinated,warm blanket given,lights dimmed/door closed,call dawn in reach
[2024-01-31] MEDS: 0.9 % Sodium Chloride Flush 3 ML SYRINGE IVFLUSH ×3 (01:00→17:04)
[2024-01-31 04:00] VITALS: BP 162/92; PULSE 58; RESP 20; TEMP 36.7; O2SAT 97
--- NOTE | 2024-01-31 07:00 | CA_ITS ---
Transthoracic Echocardiogram Patient (Last, First, Middle): Varinder Samuel, Gender: Male Date of : 1975 Age: 48 Procedure Date: 01/31/2024 Procedure Type: Transthoracic Echocardiogram Location: [facility] [place] Height: 185.42 cm Weight: 135.63 kg BSA: 2.55 m2 Heart Rate: bpm BP: 162 / 92 mmHg Clean Up Helper Banquet: Referring MD: Rene GIBSB Symptoms: Slurred speech, ?CVA , needs BUBBLE Study Quality: Fair ECG Rhythm: Sinus Conclusions: - The left ventricular systolic function is normal. The visually estimated ejection fraction is between 65-70%. - There is severely increased left ventricular wall thickness. - There is no evidence of interatrial shunt by agitated saline. - No obvious valvular pathology seen on this study. - There is mild dilatation of the ascending aorta measuring 4.40 cm. Findings Procedure Information Contrast agent, definity, is being given per protocol without apparent complications. Left Ventricle Normal left ventricular cavity size. There is severely increased left ventricular wall thickness. The left ventricular systolic function is normal. The visually estimated ejection fraction is between 65-70%. There is no evidence of regional wall motion abnormalities. Diastolic function is indeterminate on the basis of available data. Right Ventricle Mildly increased right ventricular cavity size. There is normal right ventricular systolic function. Atria Both atria are normal in size. There is no evidence of interatrial shunt by agitated saline. (rest and valsalva). Aortic Valve The aortic valve was not well visualized. There is no aortic valve stenosis. There is trace (trivial) aortic valve regurgitation. Trace to mild aortic regurgitation. Mitral Valve The mitral valve appears normal. There is no mitral valve regurgitation. There is no mitral valve stenosis. Pulmonic Valve The pulmonic valve is likely normal. Tricuspid Valve There is trace tricuspid valve regurgitation. There is no evidence of pulmonary hypertension. Great Vessels There is mild dilatation of the ascending aorta measuring 4.40 cm. Venous The inferior vena cava was not well visualized. The inferior vena cava is mildly dilated and collapses greater than 50% with inspiration. Pericardium/Pleural There is no evidence of pericardial effusion. Prior Study Comparison No significant change compared to prior study dated: 02/03/2021. Recommendations, Care & Conclusions No obvious valvular pathology seen on this study. Measurements 2D Linear Measurements IVSd: 1.56 0.6-0.9/0.6-1.0 cm LVIDd: 5.39 3.9-5.3/4.2-5.9 cm LVIDd Index: 2.11 2.4-3.2/2.2-3.1 cm/m2 LVIDs: 3.61 2.0-3.6 cm LVPWd: 1.56 0.7-1.1 cm Ao Root: 4.10 2.1-3.5 cm LA Diam: 4.40 2.7-3.8/3.0-4.0 cm LAIDs Index: 1.73 1.5-2.3 cm/m2 LV Mass: 478.09 67-162/88-224 g LV Mass Index: 187.49 43-95/49-115 g/m2 LVOT Diam: 2.30 3.0+(-)1.3 cm 2D Systolic Function EF 4C: 71.30 >55% EF 2C: 72.80 >55% EF BiP: 71.40 >55% Mitral Valve MV Pk E: 0.42 MV PK A: 0.71 MV Decel Time: 299.00 E/A: 0.60 PHT: 88.00 MVA PHT: 2.50 Decel Baxter: 1.39 Aortic Valve AoV Pk Scott: 1.75 AoV Mn Scott: 1.15 AoV VTI: 0.31 AoV Pk Grad: 12.00 Aov Mn Grad: 7.00 JANICE Cont.VTI: 3.04 LVOT LVOT Pk Scott: 1.17 LVOT Mn Scott: 0.71 LVOT VTI: 0.23 LVOT Pk Grad: 5.00 LVOT Mn Grad: 3.00 LVOT Diam: 2.30 LVOT Area: 4.15 Diastolic Function MV Pk E: 0.42 MV Pk A: 0.71 E/A: 0.60 Right Ventricle TAPSE (mm): 27.00 TVS' Scott: 16.00 Tricuspid Valve TR Pk Scott: 1.77 TR Pk Grad: 13.00 RA Press: 3.00 RVSP: 16.00 Great Vessels Aorta Ao Root-2D: 4.10 2.0-3.7 cm Ao Asc: 4.40 2.1-3.4 cm Pulmonary Valve PV Pk Scott: 1.20 Peak PV Grad: 6.00 Updated in Other Vendor System with Status of Final Jon Nichole MD electronically signed on 01/31/2024 4:47:55 PM with status of Final
[2024-01-31] MEDS: Aspirin Enteric Coated 81 MG TABLET.DR PO (08:08)
[2024-01-31 08:58] VITALS: BP 176/108; PULSE 73; RESP 18; O2SAT 98
--- NOTE | 2024-01-31 09:25 | MHC.CM.PN ---
Per PT, no PT is indicated; Patient is independent (he was working 2 jobs [employer] WORK[employer]). Home self care is the goal and CM has initiated and will follow for dc planning. Patient has not seen his PCP in years. Patient lives in an apartment with his Significant Other/Adalgisa, who will transport to home.
[2024-01-31] MEDS: LORazepam 2 MG/ML VIAL 1 MG IVPUSH (09:34)
--- NOTE | 2024-01-31 10:22 | HO.PM.IMPN ---
Subjective Subjective Date of Service: 01/31/24 Interval History: residual dysarthria Physical Exam Vital Signs: Vital Signs: Last Vital Signs Temp 98.1 F 01/31/24 04:00 Pulse 73 01/31/24 08:58 Resp 18 01/31/24 08:58 BP 176/108 H 01/31/24 08:58 Pulse Ox 98 01/31/24 08:58 O2 Del Method Room Air 01/31/24 04:00 BMI result Body Mass Index 39.5 General: AO X 3, no acute distress Resp: CTA bilateral, no accessory muscles used CVS: S1,S2,RRR GI: soft, non tender, non distended Neuro: motor grossly intact, alert, dysarthric Psych: appropriate affect, appropriate insight Objective Data Active Medications Acetaminophen (Acetaminophen 325 Mg Tablet) 650 mg PO Q6H PRN PRN Reason: Pain, Mild (Pain Scale 1-3), fever or headache Aspirin (Aspirin Enteric Coated 81 Mg Tablet.Dr) 81 mg PO DAILY [facility] Last Admin: 01/31/24 08:08 Dose: 81 mg Documented By: ANITA Atorvastatin Calcium (Atorvastatin Calcium 40 Mg Tablet) 40 mg PO BEDTIME [facility] Last Admin: 01/30/24 22:12 Dose: 40 mg Documented By: WALT Benzonatate (Benzonatate 100 Mg Capsule) 100 mg PO TID PRN PRN Reason: Cough Calcium Carbonate (Calcium Carbonate 750 Mg Tab.Chew) 750 mg PO Q4H PRN PRN Reason: Heartburn Enoxaparin Sodium (Enoxaparin Sodium 40 Mg/0.4 Ml Syringe) 40 mg SUBCUT Q24H [facility] Last Admin: 01/30/24 22:12 Dose: 40 mg Documented By: WALT Magnesium Hydroxide (Milk Of Magnesia 30 Ml Oral.Susp) 30 ml PO DAILY PRN PRN Reason: Constipation Melatonin (Melatonin 3 Mg Tablet) 6 mg PO BEDTIME PRN PRN Reason: Insomnia Ondansetron HCl (Ondansetron Hcl 4 Mg/2 Ml Vial) 4 mg IVPUSH Q8H PRN PRN Reason: Nausea and Vomiting Sodium Chloride (0.9 % Sodium Chloride Flush 3 Ml Syringe) 3 ml IVFLUSH QSHIFT [facility] Last Admin: 01/31/24 08:09 Dose: 3 ml Documented By: ANITA Labs 01/30/24 15:49 01/30/24 15:49 Labs: Laboratory Results - last 24 hr 01/30/24 01/30/24 15:49 20:43 MCV 88.4 MCH 28.7 MCHC 32.5 RDW 14.7 Plt Count 283 MPV 10.8 Immature Gran % (Auto) 0.4 Neut % (Auto) 68.3 Lymph % (Auto) 19.7 L [place] % (Auto) 10.1 Eos % (Auto) 1.0 Baso % (Auto) 0.5 Lymph # (Auto) 2.2 [place] # (Auto) 1.1 Eos # (Auto) 0.1 Baso # (Auto) 0.1 Abs Immat Gran (auto) 0.04 H Absolute Neuts (auto) 7.5 Absolute Nucleated RBC 0.000 Nucleated RBC % (auto) 0.0 Anion Gap 13 Estim Creat Clear Calc 145.1 Estimated GFR > 60 Random Glucose 97 Estimat Average Glucose 117 Hemoglobin A1c % 5.7 Calcium 9.4 Total Bilirubin 0.7 Direct Bilirubin 0.2 AST 21 ALT 32 Alkaline Phosphatase 84 Troponin I High Sens 16.0 Total Protein 6.9 Albumin 4.1 Triglycerides 271 H Cholesterol 225 H LDL Cholesterol, Calc 133 H HDL Cholesterol 38 L Lipase 14 Urine Opiates Screen Not Detected Ur Buprenorphine Scrn Not Detected Ur Oxycodone Screen Not Detected Urine Methadone Screen Not Detected Urine Fentanyl Screen Not Detected Ur Barbiturates Screen Not Detected Ur Phencyclidine Scrn Not Detected Ur Amphetamines Screen Not Detected U Benzodiazepines Scrn Not Detected Urine Cocaine Screen Not Detected U Marijuana (THC) Screen POSITIVE H Ethyl Alcohol < 10 Assessment and Plan (1) Dysarthria: Status: Acute Plan 48M PMH HTN (non compliant with meds), morbid obesity, presented with aphasia/dysarthria Aphasia/dysarthria Rule out TIA/CVA Aspirin, statin, MRI, echo, neuro eval Hypertension Has not filled meds since 2022 Permissive hypertension for now Morbid obesity Weight loss recommended dvt porphylaxis - lovenox full code reason for continued hospitalization:stroke work up Quality Stroke Does the patient have a stroke diagnosis?: No Reason for No Anti-thrombotic by Day Two: Contraindicated (Last known well time over 24 hours ago) VTE Prior VTE?: No VTE Risk Level:: Medical - moderate - high VTE Device Contraindication: Treatment Not Indicated VTE Drug Contraindication: N/A - Med Ordered
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
[2024-01-31 17:04] VITALS: BP 174/94; PULSE 74; RESP 18; O2SAT 98
[2024-01-31 17:55] VITALS: BP 179/108; PULSE 67; RESP 16; TEMP 36.7; O2SAT 94; BMI 39.4
[2024-01-31 20:00] VITALS: BP 159/93; PULSE 67; RESP 22; TEMP 37.1; O2SAT 95
[2024-01-31] MEDS: Melatonin 3 MG TABLET 6 MG PO (20:22)
[2024-01-31] MEDS: Atorvastatin Calcium 40 MG TABLET PO (20:22)
[2024-01-31] MEDS: Enoxaparin Sodium 40 MG/0.4 ML SYRINGE SUBCUT (20:23)
[2024-02-01] VITALS: BP 156/80; PULSE 79; RESP 20; TEMP 36.8; O2SAT 97
[2024-02-01 08:00] VITALS: BP 161/67; PULSE 69; RESP 20; TEMP 37.5; O2SAT 94
[2024-02-01] MEDS: Aspirin Enteric Coated 81 MG TABLET.DR PO (09:15)
[2024-02-01] MEDS: Losartan Potassium 25 MG TABLET PO (09:15)
[2024-02-01] MEDS: 0.9 % Sodium Chloride Flush 3 ML SYRINGE IVFLUSH (09:16)
[2024-02-01] MEDS: Flu Vacc TS2024-25(6mos up)/PF 0.5 ML SYRINGE IM (10:45)
--- NOTE | 2024-02-01 10:55 | PM.DS ---
DS: Providers Provider Date of Service: 02/01/24 Date of admission: 01/30/24 20:49 Date of discharge: 02/01/24 Primary care physician: Unknown Physician Consults: 01/30/24 20:52 Consult to Neurology Routine Consulting Provider: [facility] Reason for consultation: Slurred speech, difficulty word finding, ?CVA DS: Diagnosis Discharge Diagnosis (1) Dysarthria: Status: Acute (2) Acute stroke of basal ganglia: Status: Acute (3) Essential hypertension: Status: Acute DS: Summary Hospital Course Hospital Course: Admission note HPI Pt is a 48-year-old male with no reported significant PMH who has not seen a PCP in decades who presents to the ED with?slurred speech and difficulty word finding since last evening. Patient reports at approximately 18:00 yesterday evening noticed was experiencing difficulty speaking as well as feeling ?congested? with a buildup of phlegm. Initially thought he was developing a cold and ?brushed off his symptoms and went to bed. This morning symptoms persisted and were also noted by his fiancee who called 911. Patient denies any other associated complaints. No numbness or tingling in extremities. Denies headache or acute vision changes. No weakness. Denies chest pain/pressure, palpitations. No shortness a breath or difficulty speaking. Denies difficulty swallowing. No fever, chills, nausea, vomiting, abdominal pain. Patient is not on any home medications and does not know precisely when the last time he saw a PCP was, though it was many years ago. Patient reports smokes 1 pack of cigarettes a week and is a daily smoker of marijuana. Denies alcohol or illicit substance use. In the ED pt was tachypneic up to 22 and hypertensive as high as 185/95. Labs were significant for mild leukocytosis of 11.0, triglycerides 271, cholesterol 225, LDL 133, and HDL 38. Stable H& H. No significant electrolyte abnormalities. Renal and hepatic function WNL. Troponin WNL at 16.0. Tox screen positive only for marijuana. CT of head negative for acute intracranial hemorrhage or edematous territorial infarction. CTA of head and neck without proximal occlusion or flow-limiting stenosis. EKG demonstrated sinus bradycardia of 58 with sinus arrhythmia, ST elevations in V2 and V3, and T-wave inversions in lateral leads, similar to previous without significant changes. Pt was treated with aspirin. Pt will be admitted to the hospital for treatment and further evaluation of slurred speech concerning for CVA versus TIA. Hospital course The patient was evaluated for Aphasia/dysarthria on presentation which was confirmed to be an acute left basal ganglia stroke by MRI. He was evaluated by neurology and started on baby Aspirin and Atorvastatin with fair response as his speech improved and was seen by speech therapy team who will continue to work with him as outpatient. Echo showed normal EF of 65-70% with LVH and no evidence of shunt. He was also noted to have untreated essential Hypertension as he has not filled meds since 2022. Started on Amlodipine and Losartan. To find new PCP and monitor his BP as outpatient. He has Morbid obesity and Weight loss was recommended Discharge plan Continue baby aspirin and Atorvastatin Start Losartan and Amlodipine for blood pressure control try to lose weight and exercise more To get a new Primary physician to follow on your medical problem monitor blood pressure at home check blood test next week Follow with Speech therapy as outpatient Time Attestation Discharge Coordination Time (in mins): 43 Quality: Safe Use of Opioids Does Pt have an Active Cancer Diagnosis on the Problem List?: No Quality: Stroke Does the patient have a stroke diagnosis?: Yes Reason for No Anti-thrombotic at DC: N/A - Med Ordered Reason for No Anticoagulant at DC: Not indicated Reason Not Initiating IV-Tpa: Not indicated Reason for No Anti-thrombotic by Day Two: N/A - Med Ordered Reason for No Statin at DC: N/A - Med Ordered Physical Exam Vital Signs: Vital Signs: Last Vital Signs Temp 99.5 F 02/01/24 08:00 Pulse 69 02/01/24 08:00 Resp 20 02/01/24 08:00 BP 161/67 H 02/01/24 08:00 Pulse Ox 94 02/01/24 08:00 O2 Del Method Room Air 02/01/24 08:00 BMI result Body Mass Index 39.4 Const: Other: Constitutional : Awake, interactive, not in distress Neck : Normal inspection, Supple Cardiovascular : RRR, no JVP, no lower extremity edema Respiratory : good bilateral air entry, no crackles, wheezes or rhonchi Gastrointestinal: soft, lax, Normal bowel sounds, Non tender Skin : Warm, Dry Neurological : Alert & oriented x3, No focal deficit , dysarthria, CN 2-12 within normal DS: Data Imaging MRI - head: Radiologist's impression: ITS Impressions Head/Neck CTA 01/30/24 15:20 IMPRESSION: 1. No evidence of acute intracranial hemorrhage or edematous territorial infarction. 2. CTA of the head and neck without proximal occlusion or flow-limiting stenosis. Electronically signed by: Negro Emanuel DO 01/30/2024 06:17 PM EDT RP Brain MRI 01/31/24 09:43 IMPRESSION: Acute left basal ganglia infarct. No hemorrhagic transformation. Electronically signed by: Shahnaz Ken MD 01/31/2024 05:00 PM EDT RP Discharge Plan Discharge Anticipated Discharge Date/Time: 02/01/24 10:50 Patient Disposition: Home, Self-Care Discharge Diagnosis: Acute stroke Referrals: [facility] [place] [facility] [Outside] - 3-5 Days (Acute stroke with dysarthria and aphasia ) Physician,Unknown J [Physician] - 1 Week Discharge Medications: New atorvastatin 40 mg Tablet 40 mg PO BEDTIME Qty: 90 0RF aspirin 81 mg Tablet,Delayed Release (Dr/Ec) 81 mg PO DAILY Qty: 90 0RF losartan 25 mg Tablet 25 mg PO DAILY Qty: 90 0RF Protocol: Hold for SBP< HOLD for SBP < : 90 amlodipine 5 mg tablet 5 mg PO DAILY Qty: 90 0RF nicotine 14 mg/24 hr patch 24 hour 1 patch transdermal DAILY Qty: 90 0RF Discharge Orders: Discharge Order (Routine); Ordered 02/01/24 Ordered By: Pam Leger Diet: Advance to usual diet Activity on Discharge: As tolerated Stand Alone Forms: Patient Portal Discharge page Print Language: Turkmen Care Plan Goals: Continue baby aspirin and Atorvastatin Start Losartan and Amlodipine for blood pressure control try to lose weight and exercise more To get a new Primary physician to follow on your medical problem monitor blood pressure at home check blood test next week Follow with Speech therapy as outpatient Health Concerns: Acute stroke Plan of Treatment: ASpirin, Atorvastatin Assessment: as above Discharge Date/Time: 02/01/24 13:57
--- NOTE | 2024-02-01 11:00 | MHC.CM.PN ---
Patient is discharged today. He will receive OUT PATIENT [employer] REPRESENTATIVE therapy @ [facility] [place]. He has arranged for transportation home.
[2024-02-01 12:00] VITALS: BP 156/89; PULSE 79; RESP 20; TEMP 37.2; O2SAT 96
--- NOTE | 2024-02-01 12:12 | MHC.STROKE ---
Met with patient in room 444. Pt awake, alert and watching television when I entered the room. Pt is engaged in the conversation and willing to listen to the education offered. Speech is thick, slow. Pt has no other complaints. We reviewed the stroke education booklet along with pictures showing where his stroke occurred. We spoke about his risk factors including smoking. I offered information regarding the monthly stroke and aphashia support group along with a list of primary care providers (he reports that he currently does not have a PCP). All questions were answered. Will continue to assist as needed.
--- NOTE | 2024-02-01 13:44 | MHC.SLORD ---
Speech Language Pathology Order Status: Recc continued BLOCK PLACER intervention upon d/c, prescription for in home or outpatient services from .
== END 2024-02-01 13:57 | disposition home or self-care (01) | DRG 45 ==
LOC: HO.ED 18:33 → HO.EDOVER 21:21 → HO.IMC 01-31 15:16
PROVIDERS: Admitting Provider Student in an Organized Health Care Education/Training Program; Emergency Provider Emergency Medicine; Visit Provider Student in an Organized Health Care Education/Training Program
DX: I63.9 Cerebral infarction, unspecified (principal); E66.01 Morbid (severe) obesity due to excess calories; I10 Essential (primary) hypertension; R29.701 NIHSS score 1; R47.1 Dysarthria and anarthria; Z23 Encounter for immunization; Z68.39 Body mass index [BMI] 39.0-39.9, adult
CPT/HCPCS: 36415; 70496; 70498; 70551; 80048; 80061; 80076; 80307; 83036; 83690; 84484; 85025; 90656; 92507; 92523; 93005; 93306; 97161; 97165; 99285; J1650; J2060; Q9957; Q9967

== ENCOUNTER → 2024-01-30 14:58 | Outpatient (BNV) | payer BC, SELFPAY | PROVIDERS: Admitting Provider Student in an Organized Health Care Education/Training Program; Emergency Provider Emergency Medicine; Visit Provider Internal Medicine | DX: R00.1 Bradycardia, unspecified (principal); I44.4 Left anterior fascicular block; R94.31 Abnormal electrocardiogram [ECG] [EKG] | CPT/HCPCS: 93010 ==

== ENCOUNTER 2024-01-30 20:49 | Outpatient (BNV) | payer BC, SELFPAY | END 2024-01-31 07:00 | PROVIDERS: Admitting Provider Student in an Organized Health Care Education/Training Program; Emergency Provider Emergency Medicine; Visit Provider Internal Medicine | DX: I35.1 Nonrheumatic aortic (valve) insufficiency (principal) | CPT/HCPCS: 93306 ==

== ENCOUNTER → 2024-01-30 20:49 | Outpatient (BNV) | payer BC, SELFPAY | PROVIDERS: Admitting Provider Student in an Organized Health Care Education/Training Program; Emergency Provider Emergency Medicine; Visit Provider Internal Medicine | DX: R47.1 Dysarthria and anarthria (principal); I63.9 Cerebral infarction, unspecified; I10 Essential (primary) hypertension | CPT/HCPCS: 99223; 99233; 99239 ==

== ENCOUNTER → 2024-01-30 20:49 | Outpatient (BNV) | payer BC, SELFPAY | PROVIDERS: Admitting Provider Student in an Organized Health Care Education/Training Program; Emergency Provider Emergency Medicine; Visit Provider Psychiatry & Neurology Neurology | DX: I69.322 Dysarthria following cerebral infarction (principal) | CPT/HCPCS: 99222 ==

== ENCOUNTER 2024-02-16 16:01 | Outpatient (REF) | payer BC, SELFPAY | END 2024-02-16 16:02 | disposition home or self-care (01) | LOC: HO.HHCL 16:01 | PROVIDERS: Visit Provider Internal Medicine Geriatric Medicine | DX: I10 Essential (primary) hypertension (principal) | CPT/HCPCS: 36415 ==

== ENCOUNTER 2024-02-27 11:57 | Outpatient (REF) | payer BC, SELFPAY ==
[2024-02-27 14:35] LABS: Anion Gap 15 (12-20); Blood Urea Nitrogen 12 mg/dL (9-16); Carbon Dioxide 25 mmol/L (22-29); Chloride 104 mmol/L (96-108); Estimated Glomerular Filt Rate > 60; Glucose Random 82 mg/dL (60-115); Potassium 3.7 mmol/L (3.3-5.1); Sodium 140 mmol/L (135-145)
== END 2024-02-27 11:58 | disposition home or self-care (01) ==
LOC: HO.CHCLDS 11:57
PROVIDERS: Visit Provider Registered Nurse
DX: I63.9 Cerebral infarction, unspecified (principal)
CPT/HCPCS: 36415; 80048

== ENCOUNTER 2024-03-21 11:45 | Outpatient (RCR) | payer BC, SELFPAY ==
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
== END 2024-03-26 11:22 | disposition still patient (30) ==
LOC: HO.SH 11:45
PROVIDERS: Visit Provider Internal Medicine Geriatric Medicine
DX: I69.322 Dysarthria following cerebral infarction (principal)
CPT/HCPCS: 92522

== ENCOUNTER 2024-04-16 11:30 | Outpatient (RCR) | payer BC, SELFPAY ==
--- NOTE | 2024-04-16 12:33 | MHC.SL.SOA ---
Referring Provider: GabbiSwapnil Reason for Referral: Dysarthria Date of Plan of Treatment:03/21/24 Onset of Symptoms/Illness:02/08/24 Date Treatment Started:03/21/24 Medical Diagnosis:Swapnil Seo Primary Speech Language Diagnosis:R47.1 Dysarthria Reason for Visit: 04038 Individual Treatment Subjective: This will be Varinder's last visit at this time. He is returning to work next week. He has met his therapy goals. Objective: - Read words with /s/ across positions at the challenge sentences level with improved articulatory accuracy without prompting in 90% of trials. Baseline lateral list is still noted. - Read words with /ch/ across positions at the challenge sentences level with improved articulatory accuracy given prompting in 100% of trials. - Read words with /dj/ across positions at the challenge sentences level with improved articulatory accuracy given prompting in 100% of trials. - Demonstrated back tongue exercises with reduced dues with 100% accuracy. Assessment: On evaluation, Varinder demonstrated perceptually altered articulation skills that would have impaired his return to work. 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 He has benefitted from a short course of skilled outpatient Speech Therapy. Treatment targeted the establishment of oral-motor exercises, direct training on the speech sounds /s/, /ch/, and /dj/, and self-monitoring techniques. At the conclusion of therapy Pt reported that he felt 80% back to his baseline level. He also credits increased communication opportunities with his Fianc? and Friends and is looking forward to return to work with his students. Plan: Goal # : STG1: Pt will demonstrate back oral-motor exercises given a model with >80% accuracy. Status of Goal: Goal Met Goal # : STG2: Pt will produce /s/-initial at the word level with >80% accuracy and moderate assistance. Status of Goal: Goal Met Goal # : STG3: Pt will produce alveolar affricates (/ch/, /dj/) with >80% accuracy and moderate assistance. Status of Goal: Goal Met Goal # : STG4: Pt will be compliant with weekly HEP. Status of Goal: Goal Met Seen by: Graduate/Clinical Fellow: No Supervisory Statement: N/a Speech Language Pathologist: Heriberto Briones M.A., CCC-RECORDIST
== END 2024-04-26 10:08 | disposition home or self-care (01) ==
LOC: HO.SH 11:30
PROVIDERS: Visit Provider Internal Medicine Geriatric Medicine
DX: I69.322 Dysarthria following cerebral infarction (principal)
CPT/HCPCS: 92507